=== PATIENT | male | born 1995 | race Caucasian/White ===

== ENCOUNTER 2016-09-28 17:02 | Emergency (ER) | payer OTHER ==
[2016-09-28 17:06] VITALS: BP 110/82; PULSE 77; TEMP 98.1; BMI 18.6
[2016-09-28] MEDS ORDERED: KETOROLAC TROMETHAMINE 60 MG/2 ML VIAL ONE (17:27)
[2016-09-28] MEDS ORDERED: NAPROXEN 375 MG TABLET (FP) PO ONE (17:27)
[2016-09-28] MEDS ORDERED: KETOROLAC TROMETHAMINE 60 MG/2 ML VIAL IM ONE (17:27)
--- NOTE | 2016-09-28 17:51 | PDOC ---
History of Present Illness - General Chief Complaint: Pain, Acute Stated Complaint: INJURY Time Seen by Provider: 09/28/16 17:09 History Source: Patient Exam Limitations: No Limitations - History of Present Illness Initial Comments: 09/28/16 17:45 21-year-old male presents to the emergency room for evaluation of right-sided body injury. 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 Patient states the metal and wooden scaffold collapsed landing on the right side of his body which he was able to move out of the way at the last minute but did sustain abrasions to the right upper back and right arm. Patient states having discomfort to his right shoulder. Patient states did not take ED for above and came to the ER. Patient states last tetanus was 2 months ago. Timing/Duration: 1 hour Severity: mild Associated Symptoms: reports: denies symptoms Past History - Past Medical History Allergies/Adverse Reactions: Allergies Allergy/AdvReac Type Severity Reaction Status Date / Time Penicillins Allergy Unknown Verified 09/28/16 17:03 Other medical history: DENIES. - Surgical History Abdominal Surgery: Yes ( AN 8 MONTH OLD.) - Psycho/Social/Smoking Cessation Hx Anxiety: No Suicidal Ideation: No Smoking History: Current every day smoker Number of Cigarettes Smoked Daily: 2 Information on smoking cessation initiated: No Hx Alcohol Use: Yes Drug/Substance Use Hx: Yes (MARIJUANA.) Substance Use Type: Alcohol, Marijuana Patient Lives Alone: No Lives with/in: parents Review of Systems - Review of Systems Able to Perform ROS?: Yes Constitutional: No: Symptoms Reported HEENTM: No: Symptoms Reported Respiratory: No: Symptoms reported Cardiac (ROS): No: Symptoms Reported ABD/GI: No: Symptoms Reported : No: Symptoms Reported Musculoskeletal: Yes: Joint Pain, Muscle Pain Integumentary: Yes: Symptoms Reported, Other Neurological: No: Symptoms reported Endocrine: No: Symptoms Reported *Physical Exam - Vital Signs Last Vital Signs Temp Pulse Resp BP Pulse Ox 98.1 F 77 18 110/82 99 09/28/16 17:03 09/28/16 17:03 09/28/16 17:03 09/28/16 17:03 09/28/16 17:03 - Physical Exam General Appearance: Yes: Nourished, Appropriately Dressed. No: Apparent Distress HEENT: positive: EOMI, [place]. negative: Pale Conjunctivae Neck: positive: Supple. negative: Tender, Decreased range of motion Respiratory/Chest: positive: Lungs Clear, Normal Breath Sounds. negative: Respiratory Distress, Accessory Muscle Use Cardiovascular: positive: Regular Rhythm, Regular Rate. negative: Murmur Gastrointestinal/Abdominal: positive: Soft. negative: Tenderness Musculoskeletal: negative: CVA Tenderness Extremity: positive: Normal Capillary Refill. negative: Pedal Edema Integumentary: positive: Other (abrasions to right upper back and right arm) Neurologic: positive: Motor Strength 5/5 (ambulatory) ED Treatment Course - RADIOLOGY Radiology Studies Ordered: Category Date Time Status SHOULDER-RIGHT [RAD] Stat Radiology 09/28/16 17:27 Taken - Medications Given in the ED: ED Medications Discontinued Medications Generic Name Dose Route Start Last Admin Trade Name Freq PRN Reason Stop Dose Admin Ketorolac Tromethamine 60 mg 09/28/16 17:27 09/28/16 17:31 Toradol Injection - IM 09/28/16 17:28 Not Given ONCE ONE Medical Decision Making - Medical Decision Making 09/28/16 17:34 Pt with injury to right side of body. Pt with abrasions to upper back, and right arm . Pt with tenderness to right AC joint. Pt ordered for naprosyn and shoulder xray 09/28/16 17:55 Pt with - findings for fx/ subluxation. Discharge home. *DC/Admit/Observation/Transfer Diagnosis at time of Disposition: Contusion of right shoulder Qualifiers: Encounter type: initial encounter Qualified Code(s): S40.011A - Contusion of right shoulder, initial encounter - Discharge Dispostion Disposition: HOME Condition at time of disposition: Good - Patient Instructions Printed Discharge Instructions: DI for Shoulder Pain, DI for Contusion Additional Instructions: Please apply ice to the affected area as much as he can tolerate for the next 72 hours. Please apply bacitracin to the abrasions twice a day for the next few days to prevent infection. May take Aleve or Naprosyn for discomfort.
== END 2016-09-28 18:02 | disposition home or self-care (01) ==
LOC: JERFT 17:02
PROC: 3E0233Z Introduction of Anti-inflammatory into Muscle, Percutaneous Approach (ICD-10-PCS; principal; 2016-09-28)
DX: S40.011A Contusion of right shoulder, initial encounter (principal); S20.411A Abrasion of right back wall of thorax, initial encounter; S40.811A Abrasion of right upper arm, initial encounter; W20.1XXA Struck by object due to collapse of building, initial encounter; Y93.89 Activity, other specified; Y92.89 Other specified places as the place of occurrence of the external cause; Y99.0 Civilian activity done for income or pay
CPT/HCPCS: 73030-TC-RT; 99281-25